=== PATIENT | female | born 1965 | race Caucasian/White ===

== ENCOUNTER 2016-05-27 10:27 | Emergency (ER) | payer OTHER ==
[~2016-05-27] VITALS: Ht 160 cm; Wt 69.7 kg
[2016-05-27 10:33] VITALS: BP 132/88; PULSE 98; RESP 15; TEMP 98.4; O2SAT 98
[2016-05-27] MEDS ORDERED: SODIUM CHLOR 0.9% 1000 ML INJ 1,000 ML IV SCH (10:59)
[2016-05-27] MEDS ORDERED: SODIUM CHLORIDE 0.9% FLUSH 10 ML FLUSH IV FLUSH PRN (11:00)
[2016-05-27] MEDS ORDERED: MORPHINE SULFATE 4 MG/ML INJ IV PUSH ONE (11:00)
--- NOTE | 2016-05-27 11:21 | PD ---
HPI Chief Complaint: Abdominal Pain Time Seen by Provider: 10:53 Travel History International Travel<30 days: No Contact w/Intl Traveler<30days: No Traveled to known affect area: No History of Present Illness HPI Patient is a 51-year-old female who presents to emergency room with complaints of abdominal pain. Patient reports that she has been having constant left mid abdominal pain for the past 3 days. Patient reports no fevers or chills, denies any nausea or vomiting. She reports that she has been eating and drinking like her normal self. Reports that nothing makes pain better or worse. Denies any trauma or injury to her abdomen. Reports that she did have a normal bowel movement today. Reports concern as this pain has been there for 3 days and is not going away. Denies dysuria, urinary urgency or frequency. Patient with no other complaints. PFSH Past Medical History ?: Not Family History Family History: Negative Social History Alcohol Use: No Tobacco Use: No Substance Use: No Allergies-Medications (Allergen,Severity, Reaction): Coded Allergies: No Known Allergies (Unverified , 05/27/16) Reported Meds & Prescriptions Reported Meds & Active Scripts Active Cipro (Ciprofloxacin HCl) 500 Mg Tab 500 Mg PO BID 10 Days Flagyl (Metronidazole) 500 Mg Tab 500 Mg PO TID 10 Days Review of Systems General / Constitutional: No: Fever Eyes: No: Visual changes HENT: No: Headaches Cardiovascular: No: Chest Pain or Discomfort Respiratory: No: Shortness of Breath Gastrointestinal: Positive: Abdominal Pain, No: Nausea, Vomiting, Diarrhea Genitourinary: No: Dysuria Musculoskeletal: No: Pain Skin: No Rash Neurologic: No: Weakness Psychiatric: No: Depression Endocrine: No: Polydipsia Hematologic/Lymphatic: No: Easy Bruising Physical Exam Narrative GENERAL: NAD, nontoxic SKIN: Focused skin assessment warm/dry. HEAD: Atraumatic. Normocephalic. EYES: Pupils equal and round. No scleral icterus. No injection or drainage. ENT: No nasal bleeding or discharge. Mucous membranes pink and moist. NECK: Trachea midline. No JVD. CARDIOVASCULAR: Regular rate and rhythm. No murmur appreciated. RESPIRATORY: No accessory muscle use. Clear to auscultation. Breath sounds equal bilaterally. GASTROINTESTINAL: Abdomen soft, tenderness to left midabdomen with no rebound or guarding, nondistended. MUSCULOSKELETAL: No obvious deformities. No clubbing. No cyanosis. No edema. NEUROLOGICAL: Awake and alert. No obvious cranial nerve deficits. Motor grossly within normal limits. Normal speech. PSYCHIATRIC: Appropriate mood and affect; insight and judgment normal. Data Data Last Documented VS Vital Signs Date Time Temp Pulse Resp B/P Pulse Ox O2 Delivery O2 Flow Rate FiO2 05/27/16 13:10 85 16 118/75 100 Room Air 05/27/16 10:33 98.4 Orders Complete Blood Count With Diff (05/27/16 10:59) Comprehensive Metabolic Panel (05/27/16 10:59) Lipase (05/27/16 10:59) Prothrombin Time / Inr (Pt) (05/27/16 10:59) Act Partial Throm Time (Ptt) (05/27/16 10:59) Urinalysis - C+S If Indicated (05/27/16 10:59) Ct Abd/Pel W Iv Contrast(Rout) (05/27/16 10:59) Iv Access Insert/Monitor (05/27/16 10:59) Morphine Inj (Morphine Inj) (05/27/16 11:00) Sodium Chlor 0.9% 1000 Ml Inj (Ns 1000 M (05/27/16 10:59) Sodium Chloride 0.9% Flush (Ns Flush) (05/27/16 11:00) Iohexol 350 Inj (Omnipaque 350 Inj) (05/27/16 12:22) Ciprofloxacin (Cipro) (05/27/16 14:00) Metronidazole (Flagyl) (05/27/16 14:00) Labs Laboratory Tests Test 05/27/16 11:10 White Blood Count 13.1 TH/MM3 Red Blood Count 3.80 MIL/MM3 Hemoglobin 12.1 GM/DL Hematocrit 35.2 % Mean Corpuscular Volume 92.6 FL Mean Corpuscular Hemoglobin 31.9 PG Mean Corpuscular Hemoglobin 34.4 % Concent Red Cell Distribution Width 12.9 % Platelet Count 262 TH/MM3 Mean Platelet Volume 8.0 FL Neutrophils (%) (Auto) 66.8 % Lymphocytes (%) (Auto) 22.7 % Monocytes (%) (Auto) 9.5 % Eosinophils (%) (Auto) 0.7 % Basophils (%) (Auto) 0.3 % Neutrophils # (Auto) 8.8 TH/MM3 Lymphocytes # (Auto) 3.0 TH/MM3 Monocytes # (Auto) 1.2 TH/MM3 Eosinophils # (Auto) 0.1 TH/MM3 Basophils # (Auto) 0.0 TH/MM3 CBC Comment DIFF FINAL Differential Comment Prothrombin Time 11.1 SEC Prothromb Time International 1.0 RATIO Ratio Activated Partial 28.6 SEC Thromboplast Time Urine Collection Type CLEAN CATCH Urine Color YELLOW Urine Turbidity SLIGHTY CLOUDY Urine pH 6.0 Urine Specific [place] 1.019 Urine Protein TRACE mg/dL Urine Glucose (UA) NEG mg/dL Urine Ketones TRACE mg/dL Urine Occult Blood MOD Urine Nitrite NEG Urine Bilirubin NEG Urine Leukocyte Esterase NEG Urine RBC 0-3 /hpf Urine WBC 0-2 /hpf Urine Squamous Epithelial 6-8 /hpf Cells Microscopic Urinalysis Comment CULT NOT INDICATED Sodium Level 140 MEQ/L Potassium Level 3.8 MEQ/L Chloride Level 103 MEQ/L Carbon Dioxide Level 28.9 MEQ/L Anion Gap 8 MEQ/L Blood Urea Nitrogen 9 MG/DL Creatinine 0.75 MG/DL Estimat Glomerular Filtration 81 ML/MIN Rate Random Glucose 93 MG/DL Calcium Level 9.4 MG/DL Total Bilirubin 1.0 MG/DL Aspartate Amino Transf 16 U/L (AST/SGOT) Alanine Aminotransferase 21 U/L (ALT/SGPT) Alkaline Phosphatase 75 U/L Total Protein 8.0 GM/DL Albumin 3.6 GM/DL Lipase 80 U/L [facility] Medical Decision Making Medical Screen Exam Complete: Yes Emergency Medical Condition: Yes Interpretation(s) Vital Signs Date Time Temp Pulse Resp B/P Pulse Ox O2 Delivery O2 Flow Rate FiO2 05/27/16 10:33 98.4 98 15 132/88 98 Differential Diagnosis Cholecystitis, appendicitis, gastroenteritis, colitis, diverticulitis Narrative Course 51 year old female who presents to ER with complaints of left mid abdomen abdominal pain. Patient reports that she has been having constant pain for the past 3 days, nothing makes pain better or worse. Reports no nausea or vomiting , constipation or diarrhea or fever chills with symptoms. Overall, patient is nontoxic in appearance. Patient does have tenderness to left midabdomen. Plan to obtain labs and ct of abdomen for evaluation of pain. CBC & BMP Diagram 05/27/16 11:10 ct abdomen and pelvis with very prominent inflammatory change seen around the proximal transverse colon. This is appear to be centered around a 1.1cm calcific density. Patient also with b/l ovarian cyst. ct abdomen and pelvis as well as labs reviewed with patient and her extensively, a copy of her ct report was given to her. Patient understands importance of following up with a [facility] as she will need a Colonoscopy in the near Future. Reviewed all incidental findings and all findings in detail with patient. Signs and symptoms of when to return to ER was reviewed with her. Patient will return to ER if she has progressing pain, fever /chills, n/v. Diagnosis Primary Impression: Diverticulitis Qualified Code: K57.92 - Diverticulitis of intestine without perforation or abscess without bleeding, unspecified part of intestinal tract Additional Impressions: Ovarian cyst Qualified Code: N83.201 - Cysts of both ovaries Adnexal cyst Referrals: Margarita Lin MD Patient Instructions: General Instructions Additional Instructions: Please provide patient with a copy of her lab work and studies at discharge Please follow up with your primary care doctor in 2-3 days Please call [facility] for earliest follow up as your will need further workup for your abdominal symptoms Please take all antibiotics as prescribed Please bring your copy of your lab work and CT findings to your doctor's office for follow up on all incidental findings from today Med/Other Pt SpecificInfo: Prescription(s) given Scripts Ciprofloxacin (Cipro)500 Mg [id number] Mg PO BID 10 Days Ref 0 Prov:Natasha Pérez DO 05/27/16 Metronidazole (Flagyl)500 Mg [id number] Mg PO TID 10 Days Ref 0 Prov:Natasha Pérez DO 05/27/16 Disposition: 01 DISCHARGE HOME Condition: Stable Natasha Pérez DO May 27, 2016 11:21
[2016-05-27 11:22] LABS: GLUCOSE,URINE NEG (NEG); KETONE, URINE TRACE mg/dL (NEG); NITRITE,URINE NEG (NEG)
[2016-05-27 11:23] LABS: BLOOD, URINE MOD (NEG)
[2016-05-27 11:24] LABS: METHOD OF COLLECTION CLEAN CATCH; URINE COLOR YELLOW (YELLW/STRAW)
[2016-05-27 11:26] LABS: COMMENT (UR) CULT NOT INDICATED; CULTURE IF INDICATED CULT NOT INDICATED; RBC, URINE 0-3 /hpf (0-3); WBC, URINE 0-2 /hpf (0-5)
[2016-05-27 11:27] LABS: AUTOMATED NEUTROPHIL # 8.8 TH/MM3 (1.8-7.7); BASOPHIL % 0.3 % (0.0-2.0); EOSINOPHIL # 0.1 TH/MM3 (0-0.4); EOSINOPHIL % 0.7 % (0.0-4.0); HEMATOCRIT 35.2 % (35.0-46.0); HEMO FLAGS DIFF FINAL; LYMPH % 22.7 % (9.0-44.0); MEAN CELL VOLUME 92.6 FL (80.0-100.0); MEAN CORPUSCULAR HEMOGLOBIN 31.9 PG (27.0-34.0); MEAN CORPUSCULAR HGB CONC 34.4 % (32.0-36.0); MONO % 9.5 % (0.0-8.0); NEUT % 66.8 % (16.0-70.0); PLATELET COUNT 262 TH/MM3 (150-450); RED CELL DISTRIBUTION WIDTH 12.9 % (11.6-17.2); WHITE BLOOD COUNT 13.1 TH/MM3 (4.0-11.0)
[2016-05-27 11:28] LABS: CHLORIDE 103 MEQ/L (98-107); POTASSIUM 3.8 MEQ/L (3.5-5.1); SODIUM (NA) 140 MEQ/L (136-145)
[2016-05-27 11:32] LABS: ANION GAP 8 MEQ/L (5-15); APTT (PATIENT) 28.6 SEC (24.3-30.1); BICARBONATE 28.9 MEQ/L (21.0-32.0); BLOOD UREA NITROGEN 9 MG/DL (7-18); PROTHROMBIN TIME - PATIENT 11.1 SEC (9.8-11.6)
[2016-05-27 11:35] LABS: ALT (GPT) 21 U/L (10-53); AST (GOT) 16 U/L (15-37); GLOMERULAR FILTRATION RATE 81 ML/MIN (>89)
[2016-05-27 11:38] LABS: ALKALINE PHOSPHATASE 75 U/L (45-117)
[2016-05-27 12:00] VITALS: BP 138/80; PULSE 76; RESP 16; O2SAT 100
[2016-05-27] MEDS ORDERED: IOHEXOL 350 MG/ML 10 ML VIAL (for RAD DIAG) IV ONE (12:22)
[2016-05-27 13:10] VITALS: BP 118/75; PULSE 85; RESP 16; O2SAT 100
--- NOTE | 2016-05-27 13:43 | RADHPO ---
EXAM DATE/TIME: 05/27/2016 12:00 [facility] COMPARISON: No previous studies available for comparison. INDICATIONS : Right lower quadrant pain past 3 days. Elevated WBC. IV CONTRAST: 70 cc Omnipaque 350 (iohexol) IV ORAL CONTRAST: No oral contrast ingested. RADIATION DOSE: 10.17 CTDIvol (mGy) MEDICAL HISTORY : None SURGICAL HISTORY : None. ENCOUNTER: Initial ACUITY: 3 days PAIN SCALE: 7/10 LOCATION: Right lower quadrant TECHNIQUE: Volumetric scanning of the abdomen and pelvis was performed. Using automated exposure control and ad justment of the mA and/or kV according to patient size, radiation dose was kept as low as reasonably achievable to obtain optimal diagnostic quality images. FINDINGS: There is thickening of the proximal transverse colon. There is a 1.1 cm calcification seen in this r egion. There is very prominent induration seen in the fat surrounding this region. The remaining as pects of the bowel appear normal. The liver, spleen, pancreas and adrenal glands are normal. There is a 1.2 cm cyst at the lateral mid right kidney. The kidneys otherwise appear normal. The pelvic structures appear grossly intact. There is a 1.3 cm cyst at the right adnexa. There is some mild increased density identified at the posterior lung bases likely related to depende nt atelectasis. There is some degenerative change at the lumbar spine. CONCLUSION: 1. Very prominent inflammatory change seen around the proximal transverse colon. This does appear t o be centered around a 1.1 cm calcific density. This calcific density could be increased density wit hin a diverticula in this region with diverticulitis. Foreign material has lodged in this region and now caused a very prominent inflammatory change which could have a similar appearance. Significant diverticula throughout the rest of the colon, however, are not seen. This is clearly separate from t he appendix. The appendix is normal. No abscess is seen. 2. 1.3 cm right ovarian cyst. 3. 1.2 cm right renal cyst. Brando Allan MD on May 27, 2016 at 13:25 Board Certified Radiologist. This report was verified electronically.
[2016-05-27] MEDS ORDERED: CIPR-9 PO (13:49)
[2016-05-27] MEDS ORDERED: METR-1 PO (13:49)
[2016-05-27] MEDS ORDERED: CIPROFLOXACIN 500 MG TAB PO ONE (14:00)
[2016-05-27] MEDS ORDERED: metroNIDAZOLE 500 MG TAB PO ONE (14:00)
== END 2016-05-27 14:09 | disposition home or self-care (01) ==
LOC: PHED 10:27
DX: K57.92 Diverticulitis of intestine, part unspecified, without perforation or abscess without bleeding (principal); N83.201 Unspecified ovarian cyst, right side; N28.1 Cyst of kidney, acquired
CPT/HCPCS: 74177; 80053; 81001; 83690; 85025; 85610; 85730; 96361; 96374; 99284; J2270; J7030; Q9967